=== PATIENT | female | born 1965 | race Caucasian/White ===

== ENCOUNTER 2017-02-26 23:24 | Observation (INO) | payer BC ==
[~2017-02-26] VITALS: Ht 157.5 cm; Wt 88.0 kg
[2017-02-26 23:25] VITALS: BP 168/82; PULSE 77; RESP 18; TEMP 97.9; O2SAT 96
[2017-02-26] MEDS ORDERED: GLIM2TAB PO (23:31)
[2017-02-26] MEDS ORDERED: AMBI10TA PO (23:31)
--- NOTE | 2017-02-26 23:59 | PD ---
HPI Chief Complaint: Chest Pain Time Seen by Provider: 23:50 Travel History International Travel<30 days: No Contact w/Intl Traveler<30days: No Traveled to known affect area: No History of Present Illness HPI The patient is a 51 year old female who presents to the [facility] emergency department with a history of chest pain that has been present off and on for the last 2 weeks. It began again at 11 PM and it is intermittent. the pain is sharp in character. it is in the center of her chest. It does not radiate. She denies n/v, diaphoresis, or shortness of breath. She does however have some indigestion. She has also had neck and jaw pain off and on for the last 2 weeks. Her last stress test was 7 years ago. She had a heart cath in 2009 that reportedly showed no evidence of blockages. She has a history of borderline hyperlipidemia, smokes 1 ppd, and has type 2 DM. She denies HTN. She had diarrhea x4 yesterday. Otherwise, review of systems, the patient denies any recent fevers, cough, congestion, abdominal pain, vomiting, urinary symptoms , or neurologic symptoms. [facility] Past Medical History Narrative Medical The patient's past medical history is significant for hyperlipidemia, DM, dental decay, tobacco use, and dm neuropathy. Diabetes: Yes Patient Takes Glucophage: Yes Tetanus Vaccination: Unknown Influenza Vaccination: No ?: Not Past Surgical History Narrative Surgical The patient's past surgical history is significant for hysterectomy, cholecystectomy. Cholecystectomy: Yes Hysterectomy: Yes (PARTIAL) Social History Alcohol Use: No Tobacco Use: Yes (less than 1ppd) Substance Use: No Allergies-Medications (Allergen,Severity, Reaction): Coded Allergies: No Known Allergies (Unverified , 02/26/17) Reported Meds & Prescriptions Reported Meds & Active Scripts Active Reported Ambien (Zolpidem Tartrate) 10 Mg Tab 10 Mg PO HS PRN Glimepiride 2 Mg Tab 2 Mg PO DAILY Take with breakfast or first main meal Narrative Medication gabapentin Review of Systems Except as stated in HPI: all other systems reviewed are Neg General / Constitutional: No: Fever Eyes: No: Visual changes HENT: No: Headaches Cardiovascular: Positive: Chest Pain or Discomfort, No: Diaphoresis, Dyspnea on exertion Respiratory: No: Shortness of Breath Gastrointestinal: Positive: Diarrhea, No: Nausea, Abdominal Pain Genitourinary: No: Dysuria Musculoskeletal: No: Pain Skin: No Rash Neurologic: No: Weakness Psychiatric: No: Depression Endocrine: No: Polydipsia Hematologic/Lymphatic: No: Easy Bruising Physical Exam Narrative General: The patient is a well-developed well-nourished female in no acute distress. Head and Neck exam: Head is normocephalic atraumatic. Eyes: EOMI, pupils are equal round and reactive to light. Nose: Midline septum with pink mucous membranes Mouth: Dentition unremarkable. Moist mucus membranes. Posterior oropharynx is not erythematous. No tonsillar hypertrophy. Uvula midline. Airway patent. Neck: No palpable lymphadenopathy. No nuchal rigidity. No thyromegaly. Cardiovascular: Regular rate and rhythm without murmurs, gallops, or rubs. No pulse deficit to the extremities on simultaneous auscultation and palpation of her radial artery. Lungs: Clear to auscultation bilaterally. No wheezes, rhonchi, or rales. Abdomen: Soft, without tenderness to palpation in all 4 quadrants of the abdomen. No guarding, rebound, or rigidity. Normal bowel sounds are audible. No tenderness on palpation of McBurney's point. Negative [place] sign. Extremities: No clubbing, cyanosis, or edema. 2+ pulses in all 4 extremities. No calf tenderness on palpation. Back: No costovertebral angle tenderness to palpation. Neurologic Exam: Grossly nonfocal. Skin Exam: No rash noted. Intact skin that is warm and dry. Data Data Last Documented VS Vital Signs Date Time Temp Pulse Resp B/P Pulse Ox O2 Delivery O2 Flow Rate FiO2 02/27/17 00:14 75 16 123/70 100 Room Air 02/26/17 23:25 97.9 Orders Electrocardiogram (02/26/17 23:50) B-Type Natriuretic Peptide (02/26/17 23:50) Ckmb (Isoenzyme) Profile (02/26/17 23:50) Complete Blood Count With Diff (02/26/17 23:50) Comprehensive Metabolic Panel (02/26/17 23:50) Magnesium (Mg) (02/26/17 23:50) Prothrombin Time / Inr (Pt) (02/26/17 23:50) Act Partial Throm Time (Ptt) (02/26/17 23:50) Troponin I (02/26/17 23:50) Lipase (02/26/17 23:50) Chest, Single Ap (02/26/17 23:50) Ecg Monitoring (02/26/17 23:50) Bilateral Bp Monitoring (02/26/17 23:50) Iv Access Insert/Monitor (02/26/17 23:50) Oximetry (02/26/17 23:50) Oxygen Administration (02/26/17 23:50) Aspirin Chew (Aspirin Chew) (02/27/17 00:00) Sodium Chloride 0.9% Flush (Ns Flush) (02/27/17 00:00) Nitroglycerin Sl (Nitrostat Sl) (02/27/17 00:00) D-Dimer (02/26/17 23:50) Act Partial Throm Time (Ptt) (02/26/17 23:50) Prothrombin Time / Inr (Pt) (02/26/17 23:50) CKMB (02/26/17 23:50) CKMB% (02/26/17 23:50) Admit Order (Ed Use Only) (02/27/17 01:04) Labs Laboratory Tests Test 02/26/17 23:50 White Blood Count 7.2 TH/MM3 Red Blood Count 4.61 MIL/MM3 Hemoglobin 14.0 GM/DL Hematocrit 40.2 % Mean Corpuscular Volume 87.2 FL Mean Corpuscular Hemoglobin 30.4 PG Mean Corpuscular Hemoglobin 34.9 % Concent Red Cell Distribution Width 13.0 % Platelet Count 329 TH/MM3 Mean Platelet Volume 7.3 FL Neutrophils (%) (Auto) 62.2 % Lymphocytes (%) (Auto) 26.2 % Monocytes (%) (Auto) 7.5 % Eosinophils (%) (Auto) 3.4 % Basophils (%) (Auto) 0.7 % Neutrophils # (Auto) 4.5 TH/MM3 Lymphocytes # (Auto) 1.9 TH/MM3 Monocytes # (Auto) 0.5 TH/MM3 Eosinophils # (Auto) 0.2 TH/MM3 Basophils # (Auto) 0.0 TH/MM3 CBC Comment DIFF FINAL Differential Comment Prothrombin Time 10.4 SEC Prothromb Time International 0.9 RATIO Ratio Activated Partial 21.4 SEC Thromboplast Time D-Dimer Quantitative (PE/DVT) 0.37 MG/L FEU Sodium Level 139 MEQ/L Potassium Level 3.8 MEQ/L Chloride Level 106 MEQ/L Carbon Dioxide Level 22.1 MEQ/L Anion Gap 11 MEQ/L Blood Urea Nitrogen 10 MG/DL Creatinine 0.69 MG/DL Estimat Glomerular Filtration 90 ML/MIN Rate Random Glucose 113 MG/DL Calcium Level 8.9 MG/DL Magnesium Level 2.0 MG/DL Total Bilirubin 0.4 MG/DL Aspartate Amino Transf 25 U/L (AST/SGOT) Alanine Aminotransferase 32 U/L (ALT/SGPT) Alkaline Phosphatase 69 U/L Total Creatine Kinase 249 U/L Creatine Kinase MB 2.0 NG/ML Creatine Kinase MB % 0.8 % Troponin I LESS THAN 0.02 NG/ML B-Type Natriuretic Peptide 14 PG/ML Total Protein 8.1 GM/DL Albumin 4.1 GM/DL Lipase 111 U/L MDM Medical Decision Making Medical Screen Exam Complete: Yes Emergency Medical Condition: Yes Medical Record Reviewed: Yes Interpretation(s) Last Impressions Chest X-Ray 02/26/17 7500 Signed Impressions: Service Date/Time: Sunday, February 26, 2017 23:55 - CONCLUSION: No acute cardiopulmonary abnormality is identified. David Laguerre MD Differential Diagnosis Acute coronary syndrome, versus acid reflux, versus anxiety disorder, versus pleurisy, versus pulmonary embolism Narrative Course During the course of the patients emergency department visit, the patients history, examination, and differential diagnosis were reviewed with the patient. The patient had IV access obtained and blood work sent for analysis. The patient was placed on a playground monitor with oximetry and blood pressure monitoring. An ECG was done on arrival. The patient was noted to have a sinus rhythm heart rate is 77, no acute ST segment elevation or depression, T waves are inverted in lead 3, V1. The patient was initially provided aspirin 162 mg by mouth 1, nitroglycerin sublingual 1, nitroglycerin 1 inch the chest wall. The patients laboratory studies were reviewed and remarkable for a CBC that is within normal limits, CMP is remarkable for glucose of 113, CPK 249, MB percent 0.8, troponin I less than 0.02, BNP 14, lipase 111, PT 10.4, PTT 21.4, d-dimer 0.37 decreased the likelihood of pulmonary embolism in this patient with no other significant risk factors. Radiology studies were reviewed and remarkable for a chest x-ray that shows no acute cardiopulmonary abnormality. The patient will be admitted to the chest pain center for rule out serial cardiac enzyme protocol and consideration of stress testing as she has not had a stress test or cardiac evaluation done in the last 7 years and has several risk factors. The patients results were discussed with the patient, including the plan of care. I explained that further testing and/ or monitoring is indicated based on the patients history, examination, and/ or laboratory findings. Therefore, I recommended admission for additional evaluation. The patient expressed understanding and was agreeable with this plan. The patient was admitted to the hospital in stable condition and sent to a bed under the care of the chest pain center. Diagnosis Primary Impression: Chest pain, rule out acute myocardial infarction Admitting Information Admitting Physician Requests: Observation Hortencia Garcia MD Feb 26, 2017 23:59
[2017-02-27] MEDS ORDERED: NITROGLYCERIN 0.4 MG SL 25 TABS/BTL SL ONE
[2017-02-27] MEDS ORDERED: SODIUM CHLORIDE 0.9% FLUSH 10 ML FLUSH IVF PRN
[2017-02-27] MEDS ORDERED: ASPIRIN 81 MG CHEW TAB PO ONE
[2017-02-27 00:09] LABS: AUTOMATED NEUTROPHIL # 4.5 TH/MM3 (1.8-7.7); BASOPHIL % 0.7 % (0.0-2.0); EOSINOPHIL # 0.2 TH/MM3 (0-0.4); EOSINOPHIL % 3.4 % (0.0-4.0); HEMATOCRIT 40.2 % (35.0-46.0); HEMO FLAGS DIFF FINAL; LYMPH % 26.2 % (9.0-44.0); LYMPHOCYTE # 1.9 TH/MM3 (1.0-4.8); MEAN CELL VOLUME 87.2 FL (80.0-100.0); MEAN CORPUSCULAR HEMOGLOBIN 30.4 PG (27.0-34.0); MEAN CORPUSCULAR HGB CONC 34.9 % (32.0-36.0); MONO % 7.5 % (0.0-8.0); NEUT % 62.2 % (16.0-70.0); PLATELET COUNT 329 TH/MM3 (150-450); RED BLOOD COUNT 4.61 MIL/MM3 (4.00-5.30); WHITE BLOOD COUNT 7.2 TH/MM3 (4.0-11.0)
[2017-02-27 00:14] VITALS: BP 123/70; PULSE 75; RESP 16; O2SAT 100
--- NOTE | 2017-02-27 00:17 | RADRPT ---
EXAM DATE/TIME: 02/26/2017 23:55 [facility] COMPARISON: No previous studies available for comparison. INDICATIONS : Chest pain. MEDICAL HISTORY : None. SURGICAL HISTORY : None. ENCOUNTER: Initial ACUITY: 1 day PAIN SCORE: 0/10 LOCATION: Bilateral chest FINDINGS: Portable AP view of the chest demonstrates a normal-sized cardiac silhouette. No effusion, consolidat ion, or pneumothorax is visualized. The bones and soft tissues demonstrate no acute abnormality. Lung s are underinflated. CONCLUSION: No acute cardiopulmonary abnormality is identified. David Laguerre MD on February 27, 2017 at 0:14 Board Certified Radiologist. This report was verified electronically.
[2017-02-27 00:21] LABS: APTT (PATIENT) 21.4 SEC (24.3-30.1); INTERNATIONAL NORMALIZED RATIO 0.9 RATIO; PROTHROMBIN TIME - PATIENT 10.4 SEC (9.8-11.6)
[2017-02-27 00:27] LABS: ALT (GPT) 32 U/L (10-53); ANION GAP 11 MEQ/L (5-15); AST (GOT) 25 U/L (15-37); BICARBONATE 22.1 MEQ/L (21.0-32.0); BLOOD UREA NITROGEN 10 MG/DL (7-18); CHLORIDE 106 MEQ/L (98-107); GLOMERULAR FILTRATION RATE 90 ML/MIN (>89); POTASSIUM 3.8 MEQ/L (3.5-5.1); SODIUM (NA) 139 MEQ/L (136-145)
[2017-02-27 00:30] LABS: ALKALINE PHOSPHATASE 69 U/L (45-117); CREATINE KINASE 249 U/L (26-192); TOTAL BILIRUBIN ADULT 0.4 MG/DL (0.2-1.0)
[2017-02-27] MEDS ORDERED: SODIUM CHLORIDE 0.9% FLUSH 10 ML FLUSH IV FLUSH PRN (01:15)
[2017-02-27] MEDS ORDERED: SODIUM CHLORIDE 0.9% FLUSH 10 ML FLUSH IV FLUSH SCH (09:00)
--- NOTE | 2017-02-27 11:53 | EKG ---
Date Performed: 02/26/2017 Time Performed: 23:41:55 PTAGE: 51 years EKG: Sinus rhythm NORMAL ECG NO PREVIOUS TRACING DOCTOR: Adithya Garcia Interpretating Date/Time 02/27/2017 11:49:25
== END 2017-02-27 02:47 | disposition left against medical advice (07) ==
LOC: NEPC 23:24 → NEDA 02-27 01:06
PROVIDERS: ADMIT Internal Medicine Cardiovascular Disease; ATTEND Internal Medicine Cardiovascular Disease
DX: R07.89 Other chest pain (principal); E78.5 Hyperlipidemia, unspecified; E11.40 Type 2 diabetes mellitus with diabetic neuropathy, unspecified; Z79.84 Long term (current) use of oral hypoglycemic drugs; F17.200 Nicotine dependence, unspecified, uncomplicated
CPT/HCPCS: 71010; 80053; 82550; 82552; 83690; 83735; 83880; 84484; 85025; 85379; 85610; 85730; 93005; 99285; G0378